=== PATIENT | female | born 1935 | race Caucasian/White ===

== ENCOUNTER 2023-03-08 23:44 | Emergency (ER) | payer MEDICARE, MEDICAID ==
[2023-03-09 07:09] VITALS: BP 144/70; PULSE 90; RESP 19; TEMP 97.9
== END 2023-03-09 07:10 ==
LOC: ER 03-09 00:22
DX: S00.83XA Contusion of other part of head, initial encounter (principal); W18.30XA Fall on same level, unspecified, initial encounter; Y93.89 Activity, other specified; Y92.89 Other specified places as the place of occurrence of the external cause; Y99.8 Other external cause status
CPT/HCPCS: 99284